=== PATIENT | female | born 1980 | race Caucasian/White ===

== ENCOUNTER → 2016-08-01 | Outpatient (CLI) | payer OTHER ==
--- NOTE | 2016-08-04 10:01 | RAD ---
EXAM DESCRIPTION: Shoulder,Right 2 or More Views CLINICAL HISTORY: 35 years Female, RT SHOULDER PAIN IMPRESSION: 2 views of the right shoulder reveals no significant findings. No dislocation, fracture or degenerative change. Electronically signed by: Chino Hathaway MD 08/04/2016 10:01 AM CDT
== END | disposition home or self-care (01) ==
LOC: RAD 09:46
DX: S46.911A Strain of unspecified muscle, fascia and tendon at shoulder and upper arm level, right arm, initial encounter (principal); X58.XXXA Exposure to other specified factors, initial encounter

== ENCOUNTER 2017-03-14 18:14 | Emergency (ER) | payer SELFPAY ==
[2017-03-14] MEDS ORDERED: ASPIRIN TABLET 325 MG TAB PO ONE (18:31)
--- NOTE | 2017-03-14 18:36 | CT ---
Procedure: CT HEAD WITHOUT IV CONTRAST Exam Date: 03/14/2017 6:18 PM SERVICE ORDER DISPATCHER CHIEF Ordering Provider: Emory Cox Clinical Indication: stroke symptoms Comparison: None Technique: CT images of the head were obtained without contrast administration. Coronal and sagittal reformats were obtained. This exam was performed according to our departmental dose-optimization program which includes automated exposure control, adjustment of the mA and/or kV according to patient size and/or use of iterative reconstruction technique. Findings: There is no acute cortical infarction, hemorrhage, midline shift, mass effect, or hydrocephalus. The calvaria and skull base are unremarkable. Paranasal sinuses and mastoid air cells are well aerated. Impression: 1. No acute intracranial abnormality. Electronically signed by: Hien John MD 03/14/2017 6:35 PM SERVICE ORDER DISPATCHER CHIEF
--- NOTE | 2017-03-14 18:53 | RAD ---
Procedure: XR CHEST 1 VIEW Exam Date: 03/14/2017 6:18 PM COMMUNICATIONS ADMINISTRATOR Ordering Provider: Emory Cox Clinical Indication: stroke symptoms Comparison: None Findings: Lungs are clear. Heart size is within normal limits. No acute osseous abnormality. Impression: No acute pulmonary process. Electronically signed by: Hien John MD 03/14/2017 6:52 PM COMMUNICATIONS ADMINISTRATOR
[2017-03-14] MEDS ORDERED: ALTEPLASE 100 ML ONE (19:06)
[2017-03-14] MEDS ORDERED: SODIUM CHLORIDE 0.9% 1000ML 1,000 ML IVS PRN (19:32)
[2017-03-14] MEDS ORDERED: ALTEPLASE 50 ML IVS ONE (19:33)
--- NOTE | 2017-03-14 19:33 | ED.PDOC ---
History of Present Illness - General Chief Complaint: Neuro Symptoms/Deficits Stated Complaint: R sided weakness, slurred speech Time Seen by Provider: 03/14/17 18:18 Source: patient Exam Limitations: no limitations - History of Present Illness Initial Comments: the patient is a 36-year-old female presented to emergency room secondary to symptoms consistent with a stroke. Approximately 1-1/2 hours prior to arrival the patient started having some weakness in her right upper and right lower extremities with some associated decreased sensation in both. No loss of consciousness but she does feel somewhat drowsy. No real headache. No other neurological changes. She has no facial droop and dysarthria or aphasia. No previous strokes. She does have a history of rheumatoid arthritis but has not been on medications in several years. No syncope or near-syncope. No trauma.best estimate of time of onset was between 5 and 5:15 this afternoon. Timing/Duration: 1-3 hours Severity: severe Improving Factors: nothing Worsening Factors: nothing Associated Symptoms: malaise Allergies/Adverse Reactions: Allergies NO KNOWN ALLERGY Allergy (Verified 01/10/15 06:50) Review of Systems - Review of Systems Constitutional: States: malaise, weakness EENTM: States: no symptoms reported Respiratory: States: no symptoms reported Cardiology: States: no symptoms reported Gastrointestinal/Abdominal: States: no symptoms reported Genitourinary: States: no symptoms reported Musculoskeletal: States: see HPI Skin: States: no symptoms reported Neurological: States: see HPI, anxiety Endocrine: States: no symptoms reported All other Systems: No Change from Baseline Past Medical History (General) - Patient Medical History Hx Seizures: No Hx Stroke: No Hx Congestive Heart Failure: No Hx Diabetes: No Surgical History: Hysterectomy - Vaccination History Hx Influenza Vaccination: No Hx Pneumococcal Vaccination: No - Social History Hx Tobacco Use: No Hx Alcohol Use: - UNKNOWN Hx Substance Use: - UNKNOWN Hx Depression: - UNKNOWN - Female History Patient is a Female of Child Bearing Age (10 -59 yrs old): No Patient : No Family Medical History - Family History Mother Family History: Unknown Living Status: Unknown Physical Exam - Physical Exam General Appearance: Alert, Other - the patient is mildly drowsy Eye Exam: bilateral normal Ears, Nose, Throat: hearing grossly normal, normal ENT inspection, normal pharynx Neck: non-tender, full range of motion, supple, normal inspection Respiratory: lungs clear, normal breath sounds, no respiratory distress, no accessory muscle use Cardiovascular/Chest: normal peripheral pulses, regular rate, rhythm, no edema Peripheral Pulses: radial,right: 2+, radial,left: 2+, dorsalis pedis,right: 2+, dorsalis pedis,left: 2+ Gastrointestinal/Abdominal: non tender, soft Rectal Exam: deferred Back Exam: no CVA tenderness, no vertebral tenderness Extremity: normal range of motion - passive, non-tender, no pedal edema, normal capillary refill 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 She cannot raise either off the bed. She is able to move the shoulder. She can feel pressure in both extremities but no fine touch and decreased pain sensation. Skin Exam: normal color Comments: Vital Signs - 24 hr 03/14/17 03/14/17 18:14 18:48 Temperature 97.8 F Pulse Rate [ 93 H Apical] Respiratory 18 Rate Blood Pressure 126/81 [Right Arm] O2 Sat by Pulse 92 L 97 Oximetry Progress - Progress Progress: 03/14/17 19:35 the patient's a 36-year-old female presenting to the emergency room with what appears to be symptoms consistent with an ischemic stroke. The patient is currently receiving TPA. She did receive 1 dose of oral aspirin. Right-sided deficits do seem severe. The patient is being transferred for higher level of care and possible further neurological intervention. Vital signs have remained stable. She is alert and oriented. Critical care time spent on this patient not otherwise billable procedures in treatment and plan of care 45 minutes. - Results/Orders Results/Orders: 03/14/17 18:18 Telemetry .CONTINUOUS URINE DRUG SCREEN, 7 ASSAY Stat 03/14/17 19:32 Sodium Chloride 0.9% 1000ML [Ns 1000 ml] 1,000 ml IVS .QD 03/14/17 19:33 Alteplase [Activase (TPA)] 50 ml IVS ONCE Laboratory Results - last 24 hr 03/14/17 03/14/17 03/14/17 18:50 18:50 18:50 WBC 7.7 RBC 4.79 Hgb 15.2 Hct 44.0 MCV 91.7 MCH 31.7 H MCHC 34.5 RDW 14.9 H Plt Count 274 MPV 8.2 Absolute Neuts (auto) 4.10 Absolute Lymphs (auto) 2.60 Absolute Monos (auto) 0.50 Absolute Eos (auto) 0.30 Absolute Basos (auto) 0.10 Neutrophils % 53.4 Lymphocytes % 33.9 Monocytes % 6.7 Eosinophils % 4.3 Basophils % 1.7 PT 9.3 L INR 0.820 PTT (SP) 26.8 Sodium 143 Potassium 3.8 Chloride 108 Carbon Dioxide 25 Anion Gap 13.8 BUN 15 Creatinine 0.81 BUN/Creatinine Ratio 18.5 Random Glucose 94 Serum Osmolality 285.6 Calcium 9.3 Magnesium 2.2 Total Bilirubin 0.4 AST 21 ALT 20 Alkaline Phosphatase 56 Creatine Kinase 93 CK-MB (CK-2) 0.8 CK-MB (CK-2) % Not Reportable Troponin I < 0.02 B-Natriuretic Peptide < 5.0 Serum Total Protein 7.9 Albumin 4.4 Globulin 3.5 Albumin/Globulin Ratio 1.[address] shows no acute pathology. No hydrocephalus. No evidence of previous strokes. No hemorrhage. Departure - Departure Clinical Impression: Cerebrovascular accident Qualifiers: CVA mechanism: unspecified Qualified Code(s): I63.9 - Cerebral infarction, unspecified Disposition: Transfer to Hospital Transfer to Outside Facility - Transfer Information Accepting Provider:: dr kadeem mehta Accepting Facility: [facility] Reason for Transfer: required specialist not available
--- NOTE | 2017-03-14 19:42 | RAD ---
Procedure: XR CHEST 1 VIEW Exam Date: 03/14/2017 6:18 PM PROFESSOR OF COMMUNICATION Ordering Provider: Emory Cox Clinical Indication: stroke symptoms Comparison: None Findings: Lungs are clear. Heart size is within normal limits. No acute osseous abnormality. Impression: No acute pulmonary process. Electronically signed by: Hien John MD 03/14/2017 6:52 PM PROFESSOR OF COMMUNICATION
[2017-03-14 19:51] VITALS: BP 111/78; TEMP 99.5; O2SAT 95
== END 2017-03-14 20:35 | disposition short-term general hospital (02) ==
LOC: ER 18:14
DX: I63.9 Cerebral infarction, unspecified (principal); M06.9 Rheumatoid arthritis, unspecified
CPT/HCPCS: 36415; 70450; 71045; 80053; 82550; 82553; 83735; 83880; 84484; 85025; 85610; 85730; 93005; 94760; J2997; J7030

== ENCOUNTER 2018-02-02 19:08 | Emergency (ER) | payer SELFPAY | END 2018-02-02 19:20 | disposition home or self-care (01) | LOC: ER 19:08 | DX: Z53.21 Procedure and treatment not carried out due to patient leaving prior to being seen by health care provider (principal) ==

== ENCOUNTER 2019-12-12 15:07 | Emergency (ER) | payer SELFPAY ==
--- NOTE | 2019-12-12 15:18 | ED.PDOC ---
History of Present Illness - General Time Seen by Provider: 12/12/19 15:17 Source: patient, police - History of Present Illness Initial Comments: 39-year-old female who is brought in by police for complaint of intoxication in need of medical clearance. Police report that patient was trying to break into her house when she was apprehended. She appeared clearly intoxicated and admitted to taking drugs and acid this morning. Thus she was brought to the ED for evaluation and medical clearance before being placed in longterm. The patient complains mostly of pain to the right wrist. She states that she fell 1 month ago and suffered a wrist fracture. She states she was seen at a hospital in [place] and diagnosed with fracture of the right wrist. She states she has been unable to follow-up to have surgery because she does not have the finances. She reports constant sharp severe pain in the right wrist which radiates into the hand, worse with palpation of the wrist and any range of motion of the hand. She states she has been using drugs to control the pain. She additionally reports occasional productive cough and chest tightness. Denies any fevers, chills, shortness of breath, abdominal pain, nausea/vomiting. Reports occasional watery diarrhea for the past couple of days. Allergies/Adverse Reactions: Allergies NO KNOWN ALLERGY Allergy (Verified 12/12/19 15:21) Home Medications: Ambulatory Orders Azithromycin Tab [Zithromax Tab] 250 mg PO DAILY 4 Days #4 tab 12/12/19 Review of Systems - Review of Systems Review of Systems: 12/12/19 16:58 as per HPI All other Systems: Reviewed and Negative Past Medical History (General) - Patient Medical History Hx Seizures: No Hx Stroke: No Hx Congestive Heart Failure: No Hx Diabetes: No - Vaccination History Hx Influenza Vaccination: No Hx Pneumococcal Vaccination: No - Social History Hx Tobacco Use: No Hx Alcohol Use: - UNKNOWN Hx Substance Use: - UNKNOWN Hx Depression: - UNKNOWN - Female History Patient : No Family Medical History - Family History Mother Family History: Unknown Living Status: Unknown Physical Exam - Physical Exam General Appearance: Alert, Anxious, No apparent distress Eye Exam: bilateral normal Ears, Nose, Throat: hearing grossly normal, normal ENT inspection, normal pharynx Neck: non-tender, full range of motion, supple, normal inspection Respiratory: chest non-tender, lungs clear, normal breath sounds, no respiratory distress, no accessory muscle use Cardiovascular/Chest: normal peripheral pulses, regular rate, rhythm, no edema, no gallop, no JVD, no murmur Peripheral Pulses: radial,right: 2+, radial,left: 2+ Gastrointestinal/Abdominal: normal bowel sounds, soft, no organomegaly, tenderness - Mild to epigastric region Back Exam: normal inspection, no CVA tenderness, no vertebral tenderness Extremity: other - There is deformity and moderate swelling to the right wrist with marked tenderness to palpation. Radial and ulnar pulses are 2+ and equal bilaterally, patient does report some decreased sensation to light touch throughout the right hand as well as weakness due to the pain Neurologic: glazier supervisor II-XII nml as tested, alert, normal mood/affect, oriented x 3 Skin Exam: normal color, warm/dry Progress - Progress Progress: 12/12/19 15:30 Acute intoxication -Obtain med/tox clearance Right wrist pain -Appears due to 1 month old fracture of the right wrist -Obtain x-ray imaging of the right wrist and will consult with Ortho to see if anything can be done at this point -Cold compresses 12/12/19 18:35 -XR imaging of the right wrist reveals comminuted displaced distal radius fracture as well as ulnar styloid fracture. -X-ray imaging of the chest reveals possible infiltrate in the left lower lung lobe. -Labs revealed normal serum WBC, Covid testing negative, tox screen is positive for methamphetamines, alcohol, cannabinoids, cocaine, benzos -Discussed all findings with the patient. I did discuss the old right wrist fracture with the orthopedic surgeon, Dr. Coleman. He advises to place the right wrist in a splint. Given the age of the fracture, reduction is contraindicated at this time. Patient will need to follow-up outpatient with orthopedic surgery for definitive treatment. -For the pneumonia, will treat with azithromycin x5 days, first dose here. Will need repeat chest x-ray in 2 to 3 weeks time. Follow-up closely with PCP -Discussed drug cessation at length. Discharge in care of police officers to longterm. Tye Ross MD Billing #[id number] 12/12/19 15:30 EKG STAT 12/12/19 16:55 Compress/Pack:Cold ONCE 12/12/19 17:45 Miscellaneous Nursing Order .ONCE 12/13/19 09:00 Pulse Ox Daily Laboratory Results - last 24 hr 1012/12/19 12/12/19 15:30 15:30 15:30 WBC 8.3 RBC 4.98 Hgb 15.5 Hct 44.8 MCV 90.0 MCH 31.1 H MCHC 34.5 RDW 14.0 Plt Count 359 MPV 7.5 Absolute Neuts (auto) 4.50 Absolute Lymphs (auto) 2.90 Absolute Monos (auto) 0.60 Absolute Eos (auto) 0.20 Absolute Basos (auto) 0.10 Neutrophils % 54.5 Lymphocytes % 34.4 Monocytes % 7.6 Eosinophils % 2.3 Basophils % 1.2 Sodium 138 Potassium 3.5 L Chloride 101 Carbon Dioxide 27 Anion Gap 13.5 BUN 13 Creatinine 0.74 BUN/Creatinine Ratio 17.6 Random Glucose 83 Serum Osmolality 274.9 L Calcium 9.3 Total Bilirubin 0.5 AST 18 ALT 15 Alkaline Phosphatase 85 B-Natriuretic Peptide < 15.0 Serum Total Protein 8.0 Albumin 4.6 Globulin 3.4 Albumin/Globulin Ratio 1.4 Salicylates < 4.0 Urine Opiates Screen Acetaminophen < 10.0 L Urine Barbiturates Ur Phencyclidine Scrn U Amphetamin/Meth Scrn U Benzodiazepines Scrn U Cocaine Metab Screen U Cannabinoids Screen Ethyl Alcohol 12/12/19 12/12/19 15:35 15:50 WBC RBC Hgb Hct MCV MCH MCHC RDW Plt Count MPV Absolute Neuts (auto) Absolute Lymphs (auto) Absolute Monos (auto) Absolute Eos (auto) Absolute Basos (auto) Neutrophils % Lymphocytes % Monocytes % Eosinophils % Basophils % Sodium Potassium Chloride Carbon Dioxide Anion Gap BUN Creatinine BUN/Creatinine Ratio Random Glucose Serum Osmolality Calcium Total Bilirubin AST ALT Alkaline Phosphatase B-Natriuretic Peptide Serum Total Protein Albumin Globulin Albumin/Globulin Ratio Salicylates Urine Opiates Screen Positive H Acetaminophen Urine Barbiturates Negative Ur Phencyclidine Scrn Negative U Amphetamin/Meth Scrn Positive H U Benzodiazepines Scrn Positive H U Cocaine Metab Screen Negative U Cannabinoids Screen Positive H Ethyl Alcohol 41.20 - EKG/XRAY/CT EKG: Sinus - Normal sinus rhythm, heart rate 85, no ST elevations or Q waves noted, nonspecific T wave inversion in anteroseptal leads, right axis deviation, intervals normal, compared to 03/14/2017 EKG T wave inversions appear new, Otherwise unchanged XRAY: chest - Increased interstitial infiltrate noted in the periphery of the left lower lung field consistent with possible infection/pneumonia per my read Departure - Departure Clinical Impression: Methamphetamine abuse, Cocaine abuse Distal radius fracture, right Qualifiers: Encounter type: initial encounter Fracture type: closed Fracture morphology: unspecified fracture morphology Qualified Code(s): S52.501A - Unspecified fracture of the lower end of right radius, initial encounter for closed fracture Fracture of right ulnar styloid Qualifiers: Encounter type: initial encounter Fracture type: closed Fracture alignment: nondisplaced Qualified Code(s): S52.614A - Nondisplaced fracture of right ulna styloid process, initial encounter for closed fracture Community acquired pneumonia Qualifiers: Laterality: left Lung location: lower lobe of lung Qualified Code(s): J18.9 - Pneumonia, unspecified organism Time of Disposition: 18:34 Disposition: Group Home Condition: Good Instructions: Drug Abuse and Drug Addiction (DC), Wrist Fracture (DC), Pneumonia, Adult (DC) Diet: resume usual diet Activity: other - limited use of Right upper extremity until cleared by orthopedic surgery Prescriptions: Azithromycin Tab [Zithromax Tab] 250 mg PO DAILY 4 Days #4 tab Home Medications: Ambulatory Orders Azithromycin Tab [Zithromax Tab] 250 mg PO DAILY 4 Days #4 tab 12/12/19 Additional Instructions: Keep the splint in place to the right forearm and follow-up with orthopedic surgery in the next 1 to 2 weeks for repeat evaluation. Continue to take [id number] medications as needed for pain control such as Tylenol 650 mg every 6 hours as needed and ibuprofen 600 mg every 6 hours as needed. You were also noted to have possible pneumonia on your chest x-ray during this visit. You have been prescribed azithromycin which is an antibiotic that you will need to take in order to treat the pneumonia. Return to ED if you develop worsening shortness of breath, chest pain, etc. otherwise you will need to follow-up with your primary care physician in the next 2 weeks for repeat evaluation. You will also need repeat x-ray imaging of the chest to ensure clearing of the pneumonia in about 2 weeks time.
--- NOTE | 2019-12-12 15:33 | RAD ---
EXAM DESCRIPTION: Chest,1 View CLINICAL HISTORY: 39 years Female, medical clearance per PD COMPARISON: Previous study March 14, 2017 TECHNIQUE: AP portable chest. FINDINGS: Heart size is prominent with normal pulmonary vascularity. Patchy infiltrate in the peripheral left lung base No pneumothorax or pleural effusion. Bones are unremarkable. IMPRESSION: Focally increased density in the peripheral left lung base thought to be patchy infiltrate. Follow-up recommended until clear. Electronically signed by: Adrian Medina MD 12/12/2019 3:32 PM CDT
[2019-12-12 17:16] VITALS: O2SAT 99
--- NOTE | 2019-12-12 17:23 | RAD ---
EXAM: XR Right Wrist Complete, 3 or More Views CLINICAL HISTORY: The patient is 39 years old and is Female; fall x1 month ago, R wrist pain deformity TECHNIQUE: Three views of the right wrist. COMPARISON: No relevant prior studies available. FINDINGS: Bones/joints: Comminuted displaced distal radius fracture. Displaced ulnar styloid fracture. Large portion of the fifth proximal phalanx is obscured by jewelry. No dislocation. Soft tissues: Soft tissue swelling. No radiopaque foreign body. IMPRESSION: Comminuted displaced distal radius fracture. Displaced ulnar styloid fracture. Electronically signed by: Alba Cadet MD 12/12/2019 5:22 PM CDT
[2019-12-12] MEDS ORDERED: AZITHROMYCIN 250 MG TAB PO ONE (18:36)
[2019-12-12 19:04] VITALS: BP 103/53
[2019-12-12 19:05] VITALS: TEMP 97.9
== END 2019-12-12 19:05 ==
LOC: ER 15:07
DX: F14.10 Cocaine abuse, uncomplicated (principal); F14.150 Cocaine abuse with cocaine-induced psychotic disorder with delusions; J18.9 Pneumonia, unspecified organism; S52.501A Unspecified fracture of the lower end of right radius, initial encounter for closed fracture; S52.614A Nondisplaced fracture of right ulna styloid process, initial encounter for closed fracture; Z20.828 Contact with and (suspected) exposure to other viral communicable diseases; W19.XXXA Unspecified fall, initial encounter; Y92.9 Unspecified place or not applicable
CPT/HCPCS: 36415; 71045; 73110; 80053; 80307; 80320; 80329; 83880; 85025; 87635; 93005; Q0144